=== PATIENT | male | born 1935 | race Caucasian/White ===

== ENCOUNTER 2017-08-26 08:55 | Emergency (ER) | payer MEDICARE, OTHER ==
--- NOTE | 2017-08-26 09:35 | EDM.PDOC ---
ED HPI GENERAL MEDICAL PROBLEM - General Chief Complaint: Lower Extremity Injury/Pain Stated Complaint: CAN'T FEEL HIS LEGS Time Seen by Provider: 08/26/17 09:28 Source of Information: Reports: Patient History Limitations: Reports: No Limitations - History of Present Illness INITIAL COMMENTS - FREE TEXT/NARRATIVE: 82 yr male presents with tightness and pain to legs. States diarrhea many times last night and legs tightened and he thinks he fell to the floor. He called his daughter this am and was able to get some help. States he ate lunch yesterday at work and ate cereal last night for supper. Pt is alert and talkative. Jaw did lock temporarily during oral exam. States left ear is plugged. No abdominal pain, no chest pain. [facility] Onset Date: 08/25/17 Location: Reports: Lower Extremity, Left, Lower Extremity, Right Quality: Reports: Other (locked up last night) Improves with: Reports: Rest Lower Legs Pain Score (Numeric/FACES): 2 - Related Data Allergies Allergy/AdvReac Type Severity Reaction Status Date / Time No Known Allergies Allergy Verified 08/26/17 09:30 Home Meds: Home Meds Ciprofloxacin HCl [Cipro] 250 mg PO BID #14 tablet 08/26/17 [Rx] Finasteride 5 mg PO DAILY 08/26/17 [History] Lisinopril 10 mg PO DAILY 08/26/17 [History] Methocarbamol 500 mg PO TID #21 tablet 08/26/17 [Rx] Omeprazole 20 mg PO DAILY 08/26/17 [History] Pravastatin Sodium 20 mg PO QPM 08/26/17 [History] Tamsulosin HCl 0.4 mg PO DAILY 08/26/17 [History] Past Medical History HEENT History: Reports: None Cardiovascular History: Reports: None Respiratory History: Reports: None Oncologic (Cancer) History: Reports: None - Past Surgical History Other Musculoskeletal Surgeries/Procedures:: LBP, right radiculopathy. "leg gives out on me", "bad pain", "worse the past couple of years" ED ROS GENERAL - Review of Systems Review Of Systems: See Below Constitutional: Reports: Weakness HEENT: Reports: No Symptoms Respiratory: Reports: No Symptoms Cardiovascular: Reports: No Symptoms GI/Abdominal: Reports: Diarrhea : Reports: No Symptoms Musculoskeletal: Reports: Leg Pain, Muscle Stiffness Skin: Reports: No Symptoms Neurological: Reports: No Symptoms ED EXAM, GENERAL - Physical Exam Exam: See Below Exam Limited By: No Limitations General Appearance: Alert, No Apparent Distress Ears: Normal External Exam, Normal Canal Nose: Normal Inspection Throat/Mouth: Normal Inspection, Normal Oropharynx Head: Atraumatic, Normocephalic Neck: Normal Inspection, Supple, Non-Tender Respiratory/Chest: No Respiratory Distress, Lungs Clear Cardiovascular: Normal Peripheral Pulses, Regular Rate, Rhythm, No Edema GI/Abdominal: Normal Bowel Sounds, Soft, Non-Tender Back Exam: Other (chronic back pain) Extremities: Normal Range of Motion, Non-Tender, No Pedal Edema, Normal Capillary Refill Neurological: Alert, Oriented, Normal Cognition Psychiatric: Normal Affect Skin Exam: Warm, Dry, Normal Color Lymphatic: No Adenopathy Course - Vital Signs Last Recorded V/S: Last Vital Signs Temp 96.4 F 08/26/17 10:24 Pulse 96 08/26/17 10:24 Resp 18 08/26/17 10:24 BP 115/65 08/26/17 10:24 Pulse Ox 98 08/26/17 10:24 - Orders/Labs/Meds Orders: Active Orders 24 hr Category Date Time Status CULTURE-STOOL [MREF] Stat Lab 08/26/17 11:52 Received Labs: Laboratory Tests 08/26/17 08/26/17 08/26/17 Range/Units 09:40 09:45 10:07 WBC 13.4 H (4.0-11.0) K/uL RBC 5.57 (4.50-6.50) M/uL Hgb 16.3 (13.0-18.0) g/dL Hct 48.1 (40.0-54.0) % MCV 86 (76-96) fL MCH 29.3 (27.0-32.0) pg MCHC 33.9 (31.0-35.0) g/dL RDW 14.6 (11.0-16.0) % Plt Count 188 (150-400) K/uL MPV 10.5 H (6.0-10.0) fL Neut % (Auto) 86.1 H (45.0-70.0) % Lymph % (Auto) 4.5 L (20.0-40.0) % [place] % (Auto) 8.4 (3.0-10.0) % Eos % (Auto) 0.9 L (1.0-5.0) % Baso % (Auto) 0.1 (0.0-0.5) % Neut # (Auto) 11.56 H (2.00-7.50) K/uL Lymph # (Auto) 0.60 L (1.50-4.00) K/uL [place] # (Auto) 1.13 H (0.20-0.80) K/uL Eos # (Auto) 0.12 (0.04-0.40) K/uL Baso # (Auto) 0.02 (0.02-0.10) K/uL Sodium 138 (136-145) mmol/L Potassium 5.1 (3.5-5.1) mmol/L Chloride 102 (98-107) mmol/L Carbon Dioxide 25.2 (21.0-32.0) mmol/L Anion Gap 15.9 H (5.0-15.0) mmol/L BUN 28 H (8-26) mg/dL Creatinine 1.94 H (0.70-1.30) mg/dL Est Cr Clr Drug Dosing TNP Estimated GFR (MDRD) 33 L (>60) MLS/MIN BUN/Creatinine Ratio 14.4 (6-25) Glucose 147 H (74-100) mg/dL Calcium 9.9 (8.5-10.1) mg/dL Magnesium (1.8-2.4) mg/dL Total Bilirubin 0.7 (0.0-1.0) mg/dL AST 27 (15-37) U/L ALT 32 (12-78) U/L Alkaline Phosphatase 111 (46-116) U/L Total Protein 9.0 H (6.4-8.2) g/dL Albumin 4.4 (3.4-5.0) g/dL Globulin 4.6 H (2.2-4.2) g/dL Albumin/Globulin Ratio 1.0 (0.8-2.0) Urine Color Yellow Urine Appearance Cloudy (CLEAR) Urine pH 5.0 (5.0-8.0) Ur Specific [place] > 1.030 (1.003-1.030) Urine Protein 100 H (NEGATIVE) mg/dL Urine Glucose (UA) Negative (NEGATIVE) mg/dL Urine Ketones Trace H (NEGATIVE) mg/dL Urine Occult Blood Trace (NEGATIVE) Urine Nitrite Negative (NEGATIVE) Urine Bilirubin Moderate (NEGATIVE) Urine Urobilinogen Normal (0.2-1.0) E.U./dL Ur Leukocyte Esterase Small (NEGATIVE) Urine RBC 0-5 H /HPF Urine WBC 20-30 H /HPF Urine WBC Clumps Few /HPF Ur Squamous Epith Cells Many /HPF Urine Bacteria Moderate H /HPF Hyaline Casts Moderate /HPF 08/26/17 Range/Units 11:05 WBC (4.0-11.0) K/uL RBC (4.50-6.50) M/uL Hgb (13.0-18.0) g/dL Hct (40.0-54.0) % MCV (76-96) fL MCH (27.0-32.0) pg MCHC (31.0-35.0) g/dL RDW (11.0-16.0) % Plt Count (150-400) K/uL MPV (6.0-10.0) fL Neut % (Auto) (45.0-70.0) % Lymph % (Auto) (20.0-40.0) % [place] % (Auto) (3.0-10.0) % Eos % (Auto) (1.0-5.0) % Baso % (Auto) (0.0-0.5) % Neut # (Auto) (2.00-7.50) K/uL Lymph # (Auto) (1.50-4.00) K/uL [place] # (Auto) (0.20-0.80) K/uL Eos # (Auto) (0.04-0.40) K/uL Baso # (Auto) (0.02-0.10) K/uL Sodium (136-145) mmol/L Potassium (3.5-5.1) mmol/L Chloride (98-107) mmol/L Carbon Dioxide (21.0-32.0) mmol/L Anion Gap (5.0-15.0) mmol/L BUN (8-26) mg/dL Creatinine (0.70-1.30) mg/dL Est Cr Clr Drug Dosing Estimated GFR (MDRD) (>60) MLS/MIN BUN/Creatinine Ratio (6-25) Glucose (74-100) mg/dL Calcium (8.5-10.1) mg/dL Magnesium 1.9 (1.8-2.4) mg/dL Total Bilirubin (0.0-1.0) mg/dL AST (15-37) U/L ALT (12-78) U/L Alkaline Phosphatase (46-116) U/L Total Protein (6.4-8.2) g/dL Albumin (3.4-5.0) g/dL Globulin (2.2-4.2) g/dL Albumin/Globulin Ratio (0.8-2.0) Urine Color Urine Appearance (CLEAR) Urine pH (5.0-8.0) Ur Specific [place] (1.003-1.030) Urine Protein (NEGATIVE) mg/dL Urine Glucose (UA) (NEGATIVE) mg/dL Urine Ketones (NEGATIVE) mg/dL Urine Occult Blood (NEGATIVE) Urine Nitrite (NEGATIVE) Urine Bilirubin (NEGATIVE) Urine Urobilinogen (0.2-1.0) E.U./dL Ur Leukocyte Esterase (NEGATIVE) Urine RBC /HPF Urine WBC /HPF Urine WBC Clumps /HPF Ur Squamous Epith Cells /HPF Urine Bacteria /HPF Hyaline Casts /HPF Meds: Medications Discontinued Medications Generic Name Dose Route Start Last Admin Trade Name Freq PRN Reason Stop Dose Admin Ciprofloxacin 250 mg 08/26/17 11:10 08/26/17 11:14 Ciprofloxacin Hcl PO 08/26/17 11:11 250 mg ONETIME ONE Administration Sodium Chloride 500 mls @ 999 mls/hr 08/26/17 11:06 08/26/17 11:42 Normal Saline IV 08/26/17 11:36 999 mls/hr .BOLUS ONE Administration Methocarbamol 500 mg 08/26/17 11:09 08/26/17 11:14 Robaxin PO 08/26/17 11:10 500 mg ONETIME ONE Administration - Re-Assessments/Exams Free Text/Narrative Re-Assessment/Exam: 08/26/17 10:51 .Lab results reviewed. Noted leukocytosis and U/A shows small leuk est with 20-30 WBC and moderate bacteria. Will start pt on Cipro 250 mg PO bid for 7 days. Return to PCP in 1 week for follow-up or sooner if symptoms worsen or persist. 08/26/17 12:28 Pt had another loose stool, will get a stool sample for C/S. Robaxin 500 mg po now and Cipro 250 mg PO now. N/S bolus 500 xx IV now. Pt tolerated fluids well and no more leg pain. Pt lying on stretcher. Rx for Roabxin 500 mg PO tid for leg cramps.and Cipro 250 mg PO bid x 7 days for UTI. Sent to [facility]. Encourage rest, hydration, limit potassium intake. May use Tylenol as needed for pain. Return to PCP in 1 week for follow-up. Departure - Departure Time of Disposition: 10:53 Disposition: Home, Self-Care 01 Condition: Good Clinical Impression: Dysuria - Discharge Information Prescriptions: Ciprofloxacin HCl [Cipro] 250 mg PO BID #14 tablet Methocarbamol 500 mg PO TID #21 tablet Instructions: Diarrhea, Adult, Muscle Cramps and Spasms, Urinary Tract Infection, Adult, Ciprofloxacin tablets, Methocarbamol tablets Referrals: PCP,None [Primary Care Provider] - Forms: ED Department Discharge Additional Instructions: Take Cipro 250mg orally twice a day. Take first dose tonight at bedtime. Take antibiotic (Cipro) for 7 days. Take Robaxin 500mg orally three times a days as needed for the muscle spasms. Drink plenty of fluids. Avoid any salt substitutes. Eating yogurt might help with the diarrhea. Follow up next week at the clinic. - My Orders Last 24 Hours: My Active Orders 08/26/17 11:52 CULTURE-STOOL [MREF] Stat - Assessment/Plan Last 24 Hours: My Active Orders 08/26/17 11:52 CULTURE-STOOL [MREF] Stat
[2017-08-26] MEDS ORDERED: Sodium Chloride 0.9% 500 ML IV ONE (11:06)
[2017-08-26] MEDS ORDERED: Methocarbamol 500 MG Tab PO ONE (11:09)
[2017-08-26] MEDS ORDERED: Ciprofloxacin 250 MG Tab PO ONE (11:10)
== END 2017-08-26 12:53 | disposition home or self-care (01) ==
LOC: LB.ED 08:55
DX: N39.0 Urinary tract infection, site not specified (principal); R25.2 Cramp and spasm; M54.5 Low back pain; G89.29 Other chronic pain; Z79.899 Other long term (current) drug therapy
CPT/HCPCS: 36415; 80053; 81001; 83735; 85025; 96360; 99283; A9270; J7040; 87015; 87045; 87046; 87899

== ENCOUNTER 2020-01-27 07:59 | Emergency (ER) | payer OTHER, MEDICARE ==
[2020-01-27] MEDS ORDERED: Doxycycline 100 MG Cap ONE (09:00)
--- NOTE | 2020-01-27 10:36 | ER ---
REASON FOR EMERGENCY ROOM VISIT: Skin rash. HISTORY: This 84-year-old man noticed a small tick on his right lower leg approximately 1 week ago. He pulled it off and thought nothing more of it. He states that he is not sure if it was a small tick or a normal wood tick. He felt fine but yesterday noticed that there was a reddish round rash over the medial aspect of his right lower leg and on further inspection, he saw that the head of the tick was still in place and he removed that without any difficulty. The red rash has gotten somewhat larger since yesterday, but is only minimally tender to direct touch according to the patient. He has not had any fever, joint pain, muscle pain, headaches, visual symptoms, nausea or vomiting or any myalgias. He comes in this morning because of concerns that this might represent an early Lyme disease. PAST MEDICAL HISTORY: Significant for; 1. UTI and history of dysuria. 2. Lumbar radiculopathy. 3. Hypertension. 4. GERD. MEDICATIONS: Include methocarbamol 500 mg p.o. t.i.d., tamsulosin 0.4 mg p.o. daily, pravastatin 20 mg p.o. daily, omeprazole 20 mg p.o. daily, lisinopril 10 mg p.o. daily, and finasteride 5 mg p.o. daily. ALLERGIES: NONE TO MEDICATIONS. REVIEW OF SYSTEMS: All pertinent positives and negatives as listed in the HPI. PHYSICAL EXAMINATION: VITAL SIGNS: He is afebrile. See electronic medical record. MUSCULOSKELETAL: On examination of his skin above his right ankle, he has a 4 cm diameter erythematous rash which is not raised and the center of which is a pale area measuring less than 1 cm in diameter and a punctate exposed area corresponding to where he pulled off the tick's head. The skin is not machinist tool and die this area. IMPRESSION: Erythema migrans of right ankle, characteristic of early Lyme disease. PLAN: Doxycycline 100 mg 1 p.o. b.i.d. I instructed him that he should expect to see the rash gradually disappear typically on the average within 1 week. Should he develop any signs of myalgias, arthralgias, headaches, etc., he should be seen in followup. I explained to him why it would make more sense just to treat him for this now rather than to await serologic testing. He understands and agrees with this plan. All questions were answered. JOANNA /[id number]
== END 2020-01-27 09:30 | disposition home or self-care (01) ==
LOC: LB.ED 07:59
DX: A26.0 Cutaneous erysipeloid (principal); A69.20 Lyme disease, unspecified; I10 Essential (primary) hypertension; K21.9 Gastro-esophageal reflux disease without esophagitis; Z79.899 Other long term (current) drug therapy
CPT/HCPCS: 99282; 99283; A9270-GY

== ENCOUNTER 2022-03-27 09:27 | Emergency (ER) | payer OTHER ==
[2022-03-27] MEDS ORDERED: Midazolam 1 MG/ML 5 ML SDV IVPUSH ONE (09:55)
[2022-03-27] MEDS ORDERED: Sodium Chloride 0.9% 10 ML Syringe FLUSH PRN (09:55)
[2022-03-27] MEDS: Midazolam 1 MG/ML 2 ML SDV IVPUSH ONE ×6 (09:58→10:55)
[2022-03-27 10:18] LABS: ESTIMATED GFR 36 mL/min (>60)
[2022-03-30] MEDS ORDERED: Sodium Chloride 0.9% 1,000 ML IV ONE ×4 (08:37→08:46)
[2022-03-30] MEDS ORDERED: Midazolam 1 MG/ML 2 ML SDV IVPUSH ONE ×3 (08:38→08:44)
[2022-03-30] MEDS ORDERED: fentaNYL 100 MCG/2 ML SDV IVPUSH PRN ×4 (08:42→08:43)
== END 2022-03-27 11:46 | disposition expired ==
LOC: LB.ED 09:27
DX: S01.00XA Unspecified open wound of scalp, initial encounter (principal); I10 Essential (primary) hypertension; Z79.899 Other long term (current) drug therapy; W34.00XA Accidental discharge from unspecified firearms or gun, initial encounter
CPT/HCPCS: 36415; 70250; 80053; 80307; 85025; 85610; 85730; 96374; 96375; 99285; A0425; A0429; J2250; J3010; J7030